=== PATIENT | male | born 1950 | race Caucasian/White ===

== ENCOUNTER 2018-02-08 17:12 | Emergency (ER) | payer BC ==
[~2018-02-08] VITALS: Ht 165.1 cm; Wt 73.0 kg
--- NOTE | 2018-02-08 17:20 | NUR ---
AAOX2, FAMILY CALLED 911 AFTER HE VOMITED ONCE, STS,HE'S BEEN "DRINKING ALCOHOL FOR 10 STRAIGHT DAYS". RR IS EVEN AND UNLABORED WITH NAD NOTED. SKIN IS WARM AND DRY. AWAITING MD FOR EVAL.
[2018-02-08] MEDS ORDERED: ONDANSETRON HCL/PF 4 MG/2 ML VIAL IVP ONE (17:30)
[2018-02-08] MEDS ORDERED: IV NS 0.9% 1,000 ML BAG IV ONE (17:30)
[2018-02-08] MEDS ORDERED: ONDANSETRON HCL/PF 4 MG/2 ML VIAL ONE ×2 (17:35→17:37)
[2018-02-08 17:47] LABS: BASOPHILS # (AUTO) 0.2 /CMM (0.0-0.2); BASOPHILS % (AUTO) 1.2 % (0.0-2.0); EOSINOPHILS % (AUTO) 0.2 % (0.0-6.0); HEMATOCRIT 40 % (39-51); LYMPHOCYTES # (AUTO) 1.4 /CMM (0.8-4.8); LYMPHOCYTES % (AUTO) 9.7 % (20.0-44.0); MEAN CORPUSCULAR HEMOGLOBIN 29 PG (26.0-33.0); MEAN CORPUSCULAR HGB CONC 35 g/dl (31.0-36.0); MEAN CORPUSCULAR VOLUME 82 fL (80-96); MONOCYTES # (AUTO) 0.8 /CMM (0.1-1.30); MONOCYTES % (AUTO) 5.2 % (2.0-12.0); NEUTROPHILS # (AUTO) 12.1 /CMM (1.8-8.9); NEUTROPHILS % (AUTO) 83.7 % (43.0-81.0); PLATELET COUNT (AUTO) 147 /CMM (150-450); RDW COEFFICIENT OF VARIATION 14.1 (11.5-15.0); RED BLOOD CELL COUNT(AUTO) 4.91 MIL/uL (4.5-6.0); WHITE BLOOD COUNT (AUTO) 14.5 K/uL (4.3-11.0)
[2018-02-08 17:56] LABS: ALBUMIN 3.6 g/dL (3.4-5.0); BILIRUBIN,DIRECT 0.2 mg/dL (0.0-0.2); BILIRUBIN,TOTAL 0.4 mg/dL (0.2-1.0); CALCIUM, SERUM 8.2 mg/dL (8.5-10.1); CREATININE 0.9 mg/dL (0.6-1.3); POTASSIUM 3.5 mmol/L (3.5-5.1); TOTAL PROTEIN, SERUM 7.8 g/dL (6.4-8.2)
--- NOTE | 2018-02-08 18:02 | NUR ---
PATIENT REMOVED THE IV. Pressure and 4x4 applied to site. No bleeding noted.
[2018-02-08 18:21] LABS: BAND % (MANUAL) 1 % (0.0-5.0); LYMPHOCYTES % (MANUAL) 7 % (16-48); MONOCYTES % (MANUAL) 5 % (0-11.0); NEUTROPHILS % (MANUAL) 86 (42-76); REACTIVE LYMPHOCYTES 1 % (0-0)
[2018-02-08 19:23] VITALS: BP 145/94
== END 2018-02-08 19:24 | disposition home or self-care (01) ==
LOC: ER 17:17
DX: R41.82 Altered mental status, unspecified (principal); F10.129 Alcohol abuse with intoxication, unspecified; Z60.2 Problems related to living alone; Y90.9 Presence of alcohol in blood, level not specified
CPT/HCPCS: 36415; 80048; 80076; 85025; 96361; 96374; 99284; A4606; G0480; J2405; J7030; Z7610

== ENCOUNTER 2019-07-11 16:09 | Emergency (ER) | payer MEDICARE, BC ==
[~2019-07-11] VITALS: Ht 162.6 cm; Wt 73.1 kg
--- NOTE | 2019-07-11 16:15 | NUR ---
PT BIBRA 62 FROM HOME C/O ETOH "BIG BOTTLES OF WHITE WINE" -SI, PT IS AAOX3, NOT IN RESPIRATORY DISTRESS, HOOKED TO MONITOR, KEPT RESTED AND COMFORTABLE, WILL CONTINUE TO MONITOR.
--- NOTE | 2019-07-11 17:55 | NUR ---
DAUGHTER CAN BE REACHED WITH UPDATES REGARDING DISCHARGE SATYA
--- NOTE | 2019-07-11 19:25 | NUR ---
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 PT IS READY FOR DISCHARGE
--- NOTE | 2019-07-11 19:27 | NUR ---
SON WILL MATERIAL HANDLER 2ND SHIFT PT WITH IN THE HOUR
--- NOTE | 2019-07-11 20:31 | NUR ---
Patient discharged to home in stable condition. Written and verbal after care instructions given. Patient verbalizes understanding of instruction. Pt ambulatory with a steady gait
[2019-07-11 20:36] VITALS: BP 141/74
== END 2019-07-11 20:36 | disposition home or self-care (01) ==
LOC: ER 16:12
DX: F10.129 Alcohol abuse with intoxication, unspecified (principal); I10 Essential (primary) hypertension; F32.9 Major depressive disorder, single episode, unspecified; Y90.9 Presence of alcohol in blood, level not specified; Z60.2 Problems related to living alone